=== PATIENT | male | born 1960 | race Caucasian/White ===

== ENCOUNTER → 2017-06-08 | Outpatient (CLI) | payer OTHER ==
[~2017-06-08] MED LIST: AMLO2.5T PO; ASPI81TA28 PO; ATOR-24 PO; CHOL2000 PO; CITA20TA4 PO; METO25TA56 PO; NTRGSL/4 UT; OMEG10007 PO; OXYC1TAB3 PO
[2017-06-08 12:44] LABS: BASO % 0.7 %; BASO ABS # 0.04 K/uL (0-0.2); EOS % 3.1 %; EOS ABS # 0.19 K/uL (0-0.5); HEMATOCRIT 40.8 % (42-52); HEMOGLOBIN 14.5 g/dL (14.0-18.0); IG# 0.02 K/uL (0.00-0.02); LYMPH % 28.2 %; LYMPH ABS # 1.71 K/uL (1.2-3.4); MEAN CELL VOLUME 87.9 fL (80-100); MEAN CORPUSCULAR HEMOGLOBIN 31.3 pg (25-34); MEAN CORPUSCULAR HGB CONC 35.5 g/dl (32-36); MEAN PLATELET VOLUME 10.5 fL (7.4-10.4); MONO % 9.4 %; MONO ABS # 0.57 K/uL (0.11-0.59); NEUT % 58.3 %; NEUT ABS # 3.54 K/uL (1.4-6.5); PLATELET COUNT 178 K/uL (130-400); RED CELL DISTRIBUTION WIDTH CV 13.2 % (11.5-14.5); WHITE BLOOD COUNT 6.07 K/uL (4.8-10.8)
[2017-06-08 12:59] LABS: BLOOD UREA NITROGEN 22 mg/dl (7-18); CALCIUM 9.3 mg/dl (8.5-10.1); CARBON DIOXIDE 27 mmol/L (21-32); CREATININE 1.57 mg/dl (0.60-1.40); GLUCOSE 96 mg/dl (70-99); POTASSIUM 4.9 mmol/L (3.5-5.1); SODIUM 139 mmol/L (136-145)
--- NOTE | 2017-06-08 13:06 | DIAGNOSTIC IMAGING REPORT ---
CHEST 2 VIEWS ROUTINE CLINICAL HISTORY: Preoperative chest COMPARISON STUDY: No previous studies for comparison. FINDINGS: The cardiac and mediastinal contours are normal. There is no evidence of focal pulmonary consolidation. There is no evidence of failure. No pleural effusions are visualized.[ IMPRESSION: No active disease in the chest. Electronically signed by: Julián Ferrell M.D. 06/08/2017 1:04 PM Dictated Date/Time: 06/08/2017 1:04 PM
== END | disposition home or self-care (01) ==
LOC: C.LAB 12:41
PROVIDERS: ATTEND Orthopaedic Surgery Orthopaedic Surgery of the Spine
DX: Z01.811 Encounter for preprocedural respiratory examination (principal); Z01.812 Encounter for preprocedural laboratory examination

== ENCOUNTER 2017-07-20 07:45 | Inpatient (IN) | payer OTHER ==
[2017-06-08 11:29] VITALS: BMI 35.0
--- NOTE | 2017-06-08 12:25 | PAT Medication Instructions ---
Service Date Jun 08, 2017. Current Home Medication List Amlodipine (Norvasc), 2.5 MG PO QPM Aspirin (Aspirin Ec), 81 MG PO QAM Atorvastatin (Lipitor), 40 MG PO QPM Cholecalciferol (Vitamin D3), 2 CAP PO QAM Fish Oil ([place]-3), 1 CAP PO QAM Metoprolol Tartrate (Lopressor) (Lopressor), 25 MG PO BID Nitroglycerin (Nitrostat), 0.4 MG UT PRN Oxycodone Ir (Roxicodone Ir), 1-2 TAB PO UD PRN for Severe Pain Medication Instructions For Your Scheduled Surgery -Continue as directed: Nitroglycerin (Nitrostat), 0.4 MG UT PRN - Hold the following medications 2 weeks prior to surgery: Fish Oil ([place]-3), 1 CAP PO QAM - Hold the following medications the morning of surgery: Cholecalciferol (Vitamin D3), 2 CAP PO QAM - Take the following medications the morning of surgery with a sip of water: Aspirin (Aspirin Ec), 81 MG PO QAM Metoprolol Tartrate (Lopressor) (Lopressor), 25 MG PO BID Oxycodone Ir (Roxicodone Ir), 1-2 TAB PO UD PRN for Severe Pain (if needed, can be taken up to four hours before surgery) - Take the following medications as scheduled the night before surgery: Amlodipine (Norvasc), 2.5 MG PO QPM Atorvastatin (Lipitor), 40 MG PO QPM Metoprolol Tartrate (Lopressor) (Lopressor), 25 MG PO BID Oxycodone Ir (Roxicodone Ir), 1-2 TAB PO UD PRN for Severe Pain (if needed) If you have any questions please call us at [phone] or [phone] or [phone]
[~2017-07-20] VITALS: Ht 180.3 cm; Wt 113.0 kg
[2017-07-20] VITALS (10 sets, daily range): BP systolic 111–161; BP diastolic 65–87; PULSE 47–83; TEMP 36.3–36.8; O2SAT 91–100; Ht 180.3 cm; Wt 113.0 kg
[~2017-07-20 07:45] MED LIST changes: +CEFAZOLIN 2000MG IV PUSH 15 ML IV SCH; -CITA20TA4 PO; +LACTATED RINGER'S 1000ML 1,000 ML IV SCH
[2017-07-20] MEDS ORDERED: FENTANYL CITRATE INJ 50 MCG/1 ML 2 ML VIAL ONE ×4 (09:02→12:05)
[2017-07-20] MEDS ORDERED: MIDAZOLAM HCL 1 MG/ML 2ML VIAL ONE (09:02)
--- NOTE | 2017-07-20 09:10 | History & Physical Bridge Note ---
H&P Re-Evaluation Bridge Note: I have examined the patient, reviewed the History & Physical and in the interval since the performance of the History & Physical I have noted the following changes of clinical significance: No changes noted
--- NOTE | 2017-07-20 09:12 | History and Physical ---
History & Physical Date Jul 20, 2017. Chief Complaint Back and leg pain History of Present Illness The patient is a 56 year old male with complaints of back and leg pain Past Medical/Surgical History Medical Problems: (1) DDD (degenerative disc disease) (2) Seroma, postoperative Additional History Hepatic Disease: No Endocrine Disorder: No Kidney Disease: No Hypertension: No Heart Disease: No Bleeding Tendencies: No Infectious Diseases: No Allergies Coded Allergies: No Known Allergies (Unverified , `, 07/20/17) pt denies any allergies Home Medications Scheduled Amlodipine (Norvasc), 2.5 MG PO QPM Aspirin (Aspirin Ec), 81 MG PO QAM Atorvastatin (Lipitor), 40 MG PO QPM Cholecalciferol (Vitamin D3), 2 CAP PO QAM Fish Oil ([place]-3), 1 CAP PO QAM Metoprolol Tartrate (Lopressor) (Lopressor), 25 MG PO BID Nitroglycerin (Nitrostat), 0.4 MG UT PRN Scheduled PRN Oxycodone Ir (Roxicodone Ir), 1-2 TAB PO UD PRN for Severe Pain Physical Examination Skin: warm/dry, no rash Eyes: normal inspection, EOMI, sclerae normal ENT: normal ENT inspection, pharynx normal Head: normocephalic, atraumatic Neck: supple, no adenopathy, trachea midline Respiratory/Chest: lungs clear, normal breath sounds, no respiratory distress Cardiovascular: regular rate, rhythm, no edema, no murmur Abdomen / GI: normal bowel sounds, non tender Back: normal inspection Extremities: normal inspection, normal range of motion Neurologic/Psych: no motor/sensory deficits, alert, normal reflexes, oriented x 3 Diagnosis Lumbar spinal stenosis Plan of Treatment Hardware removal L4-5 L5-S1 with decompression and fusion L2-3 L3-4 L4-5 L5-S1
[2017-07-20] MEDS ORDERED: BUPIVACAINE/EPINEPHRINE 0.5% MPF 1:200,000 30 ML VIAL ONE (09:25)
[2017-07-20] MEDS ORDERED: BACITRACIN 50000 UNIT VIAL ONE (09:26)
[2017-07-20] MEDS ORDERED: HYDROmorphone INJ 2 MG/ML SYR/VIAL ONE ×2 (10:07→11:28)
[2017-07-20] MEDS ORDERED: PROMETHAZINE HCL INJ 6.25 MG in SODIUM CHLORIDE 0.9% 50ML 50 ML IV PRN (10:15)
[2017-07-20] MEDS ORDERED: EpHEDrine SULFATE INJ 50 MG/ML AMP IV PRN (10:15)
[2017-07-20] MEDS ORDERED: ATROPINE SULFATE 0.1 MG/ML 5ML SYR IV PRN (10:15)
[2017-07-20] MEDS ORDERED: ONDANSETRON INJ 2 MG/ML 2 ML VIAL IV PRN ×2 (10:15→12:00)
[2017-07-20] MEDS ORDERED: HYDROmorphone INJ 1 MG/ML SYR IV PRN (10:15)
[2017-07-20] MEDS ORDERED: ALBUMIN HUMAN 5% 12.5 GM/250 ML VIAL IV ONE (11:08)
[2017-07-20] MEDS ORDERED: FLOSEAL HEMOSTATIC MATRIX 10ML TOP ONE (11:41)
--- NOTE | 2017-07-20 11:46 | [facility] Operative Report ---
Operative Report Operative Date Jul 20, 2017. Pre-Operative Diagnosis Lumbar Spinal Stenosis Post-Operative Diagnosis Same Procedure(s) Performed 1. Removal posterior instrumentation L4-5 L5-S1. #2 expiration fusion L4-5 L5-S1. #3 lumbar decompression medial facetectomies foraminotomies L2-3 L3-4. #4 posterior spinal fusion L2-3 L3-4 L4-5. #5 placement of posterior segmental instrumentation L2-L5. #6 interbody fusion L3-4. #7 placement peek cage 12 x 26 mm at L3-4. #8 placement of locally harvested autograft and in the posterior gutters. #9 placement of infuse collagen sponge, Nast graft in the posterior gutters and ostial amp in the interbody space. Surgeon Dr. Olaf Eubanks Train Brake Operator Surgeon(s) Jayne Chew PA-C Estimated Blood Loss 250 Description of Procedure Patient was met with preoperatively case discussed all questions addressed. After informed consent obtained patient was taken to the operative suite underwent intubation and placed in a prone position on the Nikhil table on top of the Maykel frame. All bony prominences were well-padded eyes inspected to ensure no external pressure placed upon the. This point the lumbar spine was prepped and draped in normal sterile fashion. Sharp dissection with the assistance of Bovie cautery was performed down to and exposing the lamina and transverse process of L2-L3 and the instrumentation L4 L5-S1 levels bilaterally. I then proceeded remove the hardware bilaterally. Explored the fusion mass noting to be intact though there was a paucity bone graft at the 4 5 level. Then performed complete laminectomy of L3 and L2 addressing severe central lateral recess disease. Pedicle screws were then placed in L2 L3-L4-L5 bilaterally with the assistance of fluoroscopy and the appropriately sized radha placed. Through a transforaminal approach on the left complete discectomy of L3 -4 was performed endplates could to subcortical bleeding bone and a 12 x 26 mm peek cage filled with ostium bone graft tapped in position. The rods and locked in final position bilaterally. Transverse processes of L2-L3-L4 and L5 burred to subcortical bleeding bone. Infuse collagen sponge mass graft and locally harvested morselized autograft placed in the posterior gutters. 15 round SHAYNE drain inserted. Incision was closed with 1 Vicryl fascia 2-0 Vicryl subcutaneously 4 Monocryl for fashion closure Steri-Strips sterile dressings placed. Patient weakened the PACU stable condition. Please note Jayne Mcmillan was present throughout the entire procedure involved in patient positioning complex portions of the surgery and final skin closure. I attest to the content of the Intraoperative Record and any orders documented therein. Any exceptions are noted below.
[2017-07-20] MEDS ORDERED: SODIUM CHLORIDE 0.9% 1000ML 1,000 ML IV SCH (11:47)
[2017-07-20] MEDS ORDERED: DEXAMETHASONE SOD INJ 4 MG/ML VIAL ONE (11:49)
[2017-07-20] MEDS ORDERED: ROCURONIUM BROMIDE 10 MG/ML 5 ML VIAL IV ONE (11:49)
[2017-07-20] MEDS ORDERED: ONDANSETRON INJ 2 MG/ML 2 ML VIAL ONE (11:49)
[2017-07-20] MEDS ORDERED: PROPOFOL IV EMULSION 10 MG/ML 20 ML VIAL IV ONE (11:49)
[2017-07-20] MEDS ORDERED: EpHEDrine SULFATE 50MG/5ML SYR ONE (11:49)
[2017-07-20] MEDS ORDERED: LIDOCAINE HCL 2% 2 ML VIAL (20MG/ML) ONE (11:49)
[2017-07-20] MEDS ORDERED: ACETAMINOPHEN IV 100 ML IV PRN (12:00)
[2017-07-20] MEDS ORDERED: ACETAMINOPHEN 500 MG TAB PO PRN (12:00)
[2017-07-20] MEDS ORDERED: METOCLOPRAMIDE HCL INJ 5 MG/ML 2 ML VIAL IV PRN (12:00)
[2017-07-20] MEDS ORDERED: ALUMINUM/MAGNESIUM SUSP 30 ML UDC PO PRN (12:00)
[2017-07-20] MEDS ORDERED: hydrOXYzine HCL 25 MG TAB PO PRN (12:00)
[2017-07-20] MEDS ORDERED: NALOXONE HCL 0.4 MG/1 ML VIAL/CARP IV PRN (12:00)
[2017-07-20] MEDS ORDERED: BISACODYL 10 MG SUPP PR PRN (12:00)
[2017-07-20] MEDS ORDERED: MAGNESIUM HYDROXIDE SUSP 30 ML UDC PO PRN (12:00)
[2017-07-20] MEDS ORDERED: NITROGLYCERIN 0.4 MG SL PER TAB CHARGE UT PRN (12:00)
[2017-07-20] MEDS ORDERED: DO NOT ADMINISTER PNEUMOCOCCAL VACCINE PRN (12:00)
[2017-07-20] MEDS ORDERED: SOD PHOSPHATE/SOD BIPHOSPHATE ENEMA 132 ML BTL PR PRN (12:00)
[2017-07-20] MEDS ORDERED: PROMETHAZINE HCL INJ 12.5 MG in SODIUM CHLORIDE 0.9% 50ML 50 ML IV PRN (12:00)
[2017-07-20] MEDS ORDERED: FAMOTIDINE 20 MG TAB PO PRN (12:00)
[2017-07-20] MEDS ORDERED: DO NOT ADMINISTER FLU VACCINE PRN (12:00)
[2017-07-20] MEDS ORDERED: LORAZEPAM 0.5 MG TAB PO PRN (12:00)
[2017-07-20] MEDS ORDERED: LORAZEPAM INJ 0.5 MG in SYRINGE 0.75 ML IV PRN (12:00)
[2017-07-20] MEDS ORDERED: HYDROmorphone INJ 0.5 MG/0.5 ML SYR ONE (12:10)
--- NOTE | 2017-07-20 12:10 | DIAGNOSTIC IMAGING REPORT ---
LUMBAR SPINE, INTRAOPERATIVE FLUOROSCOPY HISTORY: L4 S1 hardware removal. L2-L5 decompression and fusion. FLUOROSCOPY TIME: 11 seconds. FINDINGS: Intraoperative fluoroscopy was provided for the lumbar spine. 3 fluoroscopic spot images were obtained. Posterior decompression fusion from L2 through L5 with pedicle screws and rods. The hardware appears intact. IMPRESSION: Fluoroscopy provided for a L2-L5 posterior decompression and fusion. Electronically signed by: Lencho Montoya M.D. 07/20/2017 12:08 PM Dictated Date/Time: 07/20/2017 12:07 PM
[2017-07-20] MEDS: HYDROmorphone HCL 0.5MG/ML 50 ML CASSETTE IV PRN ×4 (12:27→23:04)
[2017-07-20] MEDS: FENTANYL CITRATE INJ 50 MCG/1 ML 2 ML VIAL IV PRN ×4 (12:29→12:50)
--- NOTE | 2017-07-20 13:12 | Anesthesiology Progress Note ---
Anesthesia Post Op Note Date & Time Jul 20, 2017 at 13:12 Vital Signs Pain Intensity: 7 Vital Signs Past 12 Hours Date Time Temp Pulse Resp B/P (MAP) Pulse Ox O2 Delivery O2 Flow Rate FiO2 07/20/17 13:00 70 22 146/83 100 Nasal Cannula 4 07/20/17 12:50 73 12 144/83 99 Nasal Cannula 4 07/20/17 12:40 57 20 140/83 94 Nasal Cannula 4 07/20/17 12:30 72 15 141/81 100 Oxymask 10 07/20/17 12:20 74 13 139/77 100 Oxymask 10 07/20/17 12:10 36.2 81 19 149/83 99 Oxymask 10 07/20/17 08:33 36.7 47 20 132/78 97 Room Air Notes Mental Status: alert / awake / arousable, participated in evaluation Pt Amnestic to Procedure: Yes Nausea / Vomiting: adequately controlled Pain: adequately controlled Airway Patency, RR, SpO2: stable & adequate BP & HR: stable & adequate Hydration State: stable & adequate Anesthetic Complications: no major complications apparent
[2017-07-20] MEDS: SODIUM CHLORIDE 0.9% 1000ML 1,000 ML IV SCH ×2 (13:53→20:27)
[2017-07-20] MEDS ORDERED: RXC5 PO (14:37)
--- NOTE | 2017-07-20 14:38 | Discharge Instructions ---
Discharge Instructions Date of Service Jul 20, 2017. Admission Reason for Admission: Lumbar Spinal Stenosis Discharge Discharge Diagnosis / Problem: lumbar stenosis Discharge Goals Goal(s): Improve function Activity Recommendations Activity Limitations: per Instructions/Follow-up section . Instructions / Follow-Up Instructions / Follow-Up ACTIVITY RECOMMENDATIONS: SELF CARE INSTRUCTIONS AFTER THORACIC/LUMBAR FUSIONS 1. You may walk to your tolerance. It is good exercise for your legs and back. Expect some back and intermittent leg aches and pains. 2. You may perform "counter-top" level activities (make a sandwich, lion with a project, etc.). 3. No bending or lifting of more than 10 pounds or back twisting of any nature (roll like a log when turning in bed). 4. You may ride in a car for 20-30 minutes at a time. No driving until after your first visit with your doctor. 5. Frequent changes of position and restricting sitting to 30 minutes at a time will help limit the amount of back spasms and stiffness you may experience. 6. You may discontinue the use of ambulatory aids (cane, crutches, etc.) once your strength and confidence allow. 7. You may risk and insurance manager the shower and let water strike your incision when you arrive home at least once daily. Do not take a tub bath, sit in a hot tub or go into a swimming pool until after your first recheck in the office. SPECIAL CARE INSTRUCTIONS: VERY IMPORTANT TO READ AND REVIEW A. Your surgical incision has been closed with a cosmetic suture under the skin that will dissolve in about 6 weeks. In 14 days, you can use a pair of clean scissors and cut the suture that is left outside of the skin at the ends of your incision. 1. The small skin tapes can be removed 7 days after surgery if they have not fallen off by that point. 2. You may keep the wound open to air as much as possible to promote healing after post-op day number 5 unless told otherwise by your doctor. 3. If you think the wound looks like it is becoming infected (redness or worsening drainage) and/or you are experiencing fever, chill or worsening back pain and muscle spasms, contact the office so that we may evaluate you as soon as possible. B. Complications are uncommon, but please contact us if you have any signs or symptoms of: 1. wound infection (fever higher than 102.5 degrees F, redness, separation of wound, drainage, or increasing pain from the incision) 2. blood clots in legs (pain, swelling, redness and warmth in legs) 3. urinary tract infection (fever higher than 102.5 degrees F, burning upon urination or increased frequency of urination) 4. nerve problems (inability to walk on your toes or heels, numbness, loss of bowel or bladder control) 5. any other symptoms that concern you C. Please call the office at if you have any concerns or questions about your operation or recovery. D. No smoking! Smoking drastically decreases the chance of a solid fusion. E. Do not take any anti-inflammatory medications (Indocin, Advil, Motrin, Aspirin, Naprosyn, etc.) as these may inhibit the chance of a solid fusion. Tylenol is okay to take for pain. MANAGING PAIN AFTER SPINAL SURGERY 1. Narcotic medication is intended for short-term use and will be provided for surgical pain. Surgical pain usually lasts for a period of 4-6 weeks. Narcotic medication includes Percocet, Vicodin, Darvocet, Tylenol #3 or Lortab. 2. Longer-term pain is more appropriately treated with non-narcotic medication such as Tylenol ES. 3. Muscle spasm is not appropriately treated with narcotics. Muscle relaxers such as Soma, Flexeril or Skelaxin can be used along with Tylenol ES. 4. Remember that we all live with some "aches and pains". This is not unusual or uncommon after an injury or as we get older. a. Back pain is expected and may include muscle spasms for 4 to 6 weeks after surgery. The pain should gradually improve. If the pain worsens for no apparent reason, please contact the office. b. Intermittent leg pain may also be experienced and should not be concerned about unless it worsens for no apparent reason. If so, please contact the office. 5. We will provide appropriate medication within the normal guidelines of their prescribed use. We will also be very cautious and aware of potential abuse and extended duration of patients' medication needs. a. Pain medications are for your comfort and to assist with sleep and rest so that the tissue can heal. They are not provided in order to return to normal activity and should not be used through the day. To do so or worsening pain at night can result from ongoing tissue damage and development of tolerance to the prescribed medicine. 6. Please allow 2-3 days to process refills. Prescriptions will not be mailed but must be picked up at the office. FOLLOW UP VISIT: Keep your scheduled follow-up appointment. Any questions, please call the office at . Current Hospital Diet Patient's current hospital diet: Regular Diet Discharge Diet Recommended Diet: Regular Diet Procedures Procedures Performed: 1. Removal posterior instrumentation L4-5 L5-S1. #2 expiration fusion L4-5 L5-S1. #3 lumbar decompression medial facetectomies foraminotomies L2-3 L3-4. #4 posterior spinal fusion L2-3 L3-4 L4-5. #5 placement of posterior segmental instrumentation L2-L5. #6 interbody fusion L3-4. #7 placement peek cage 12 x 26 mm at L3-4. #8 placement of locally harvested autograft and in the posterior gutters. #9 placement of infuse collagen sponge, Nast graft in the posterior gutters and ostial amp in the interbody space. Pending Studies Studies pending at discharge: no Medical Emergencies . Who to Call and When: Medical Emergencies: If at any time you feel your situation is an emergency, please call 911 immediately. . Non-Emergent Contact Non-Emergency issues call your: Primary Care Provider . "Provider Documentation" section prepared by Olaf Eubanks. .
[2017-07-20] MEDS: CEFAZOLIN IV 2,000 MG in SYRINGE 0 ML IV SCH (18:01)
[2017-07-20] MEDS: ATORVASTATIN 40 MG TAB PO SCH (20:30)
[2017-07-20] MEDS: METOPROLOL TARTRATE 25 MG TAB PO SCH (20:30)
[2017-07-20] MEDS: AMLODIPINE BESYLATE 5 MG TAB PO SCH (20:31)
[2017-07-20] MEDS: DOCUSATE SODIUM/SENNA 50/8.6MG TAB PO SCH (20:32)
[2017-07-21] MEDS: SODIUM CHLORIDE 0.9% 1000ML 1,000 ML IV SCH (02:35)
[2017-07-21] MEDS: CEFAZOLIN IV 2,000 MG in SYRINGE 0 ML IV SCH (02:35)
[2017-07-21 03:05] VITALS: BP 117/69; PULSE 78; TEMP 36.5; O2SAT 93
[2017-07-21] MEDS ORDERED: NALOXONE HCL 0.4 MG/1 ML VIAL/CARP IV PRN (06:00)
[2017-07-21] MEDS ORDERED: DC PCA ONE (06:00)
[2017-07-21] MEDS ORDERED: HYDROmorphone INJ 0.5 MG/0.5 ML SYR IV PRN (06:00)
[2017-07-21 06:30] LABS: BASO % 0.1 %; BASO ABS # 0.01 K/uL (0-0.2); EOS % 0.1 %; EOS ABS # 0.01 K/uL (0-0.5); HEMATOCRIT 31.8 % (42-52); IG# 0.03 K/uL (0.00-0.02); LYMPH % 6.4 %; MEAN CELL VOLUME 89.3 fL (80-100); MEAN CORPUSCULAR HEMOGLOBIN 30.9 pg (25-34); MEAN CORPUSCULAR HGB CONC 34.6 g/dl (32-36); MEAN PLATELET VOLUME 10.7 fL (7.4-10.4); MONO % 8.3 %; NEUT % 84.8 %; NEUT ABS # 9.23 K/uL (1.4-6.5); PLATELET COUNT 137 K/uL (130-400); RED CELL DISTRIBUTION WIDTH CV 13.1 % (11.5-14.5); RED CELL DISTRIBUTION WIDTH SD 42.7 fL (36.4-46.3); WHITE BLOOD COUNT 10.88 K/uL (4.8-10.8)
[2017-07-21 06:57] VITALS: BP 121/69; PULSE 68; TEMP 36.9; O2SAT 96
[2017-07-21 07:21] LABS: CALCIUM 7.8 mg/dl (8.5-10.1); CREATININE 1.39 mg/dl (0.60-1.40); POTASSIUM 4.2 mmol/L (3.5-5.1)
--- NOTE | 2017-07-21 07:44 | Anesthesiology Progress Note ---
Anesthesia Post Op Note Date & Time Jul 21, 2017 at 07:44 Vital Signs Vital Signs Past 12 Hours Date Time Temp Pulse Resp B/P (MAP) Pulse Ox O2 Delivery O2 Flow Rate FiO2 07/21/17 06:57 36.9 68 18 121/69 (86) 96 Room Air 07/21/17 03:05 36.5 78 17 117/69 (85) 93 Room Air 07/20/17 23:55 Room Air 07/20/17 23:11 36.8 81 17 111/65 (80) 91 Room Air Notes Mental Status: alert / awake / arousable, participated in evaluation Pt Amnestic to Procedure: Yes Nausea / Vomiting: adequately controlled Pain: adequately controlled Airway Patency, RR, SpO2: stable & adequate BP & HR: stable & adequate Hydration State: stable & adequate Anesthetic Complications: no major complications apparent
[2017-07-21] MEDS: ASPIRIN 81 MG ECTAB PO SCH (08:49)
[2017-07-21] MEDS: METOPROLOL TARTRATE 25 MG TAB PO SCH ×2 (08:49→21:05)
[2017-07-21] MEDS: OXYCODONE HCL IR 5 MG TAB (IMMEDIATE RELEASE) PO PRN ×3 (08:49→16:53)
[2017-07-21 12:42] VITALS: BP 134/76; PULSE 60; TEMP 36.7; O2SAT 94
--- NOTE | 2017-07-21 13:40 | Progress Note ---
Progress Note Date of Service Jul 21, 2017. Progress Note Patient's back pain is controlled leg symptoms are improved. Vital signs are stable. On exam his good strength testing appears comfortable. Assessment status post lumbar decompression fusion. Plan at this time we will continue with physical therapy advance his bowel regiment anticipate possible discharge .
[2017-07-21 15:54] VITALS: BP 117/76; PULSE 91; TEMP 36.8; O2SAT 94
[2017-07-21] MEDS: ATORVASTATIN 40 MG TAB PO SCH (21:03)
[2017-07-21] MEDS: AMLODIPINE BESYLATE 5 MG TAB PO SCH (21:06)
[2017-07-21] MEDS: DOCUSATE SODIUM/SENNA 50/8.6MG TAB PO SCH (21:06)
[2017-07-21 23:11] VITALS: BP 138/80; PULSE 65; TEMP 36.8; O2SAT 96
[2017-07-22] MEDS: KETOROLAC TROMETHAMINE 30 MG/ML VIAL IV PRN ×3 (00:11→18:19)
[2017-07-22] MEDS: OXYCODONE HCL IR 5 MG TAB (IMMEDIATE RELEASE) PO PRN ×4 (02:22→21:41)
[2017-07-22] MEDS: POLYETHYLENE (MIRALAX) 17 GM PACK PO SCH ×4 (05:40→23:52)
[2017-07-22 06:01] VITALS: BP 148/88; PULSE 59; TEMP 36.6; O2SAT 95
[2017-07-22 07:15] VITALS: BP 142/74; PULSE 64
[2017-07-22] MEDS: ASPIRIN 81 MG ECTAB PO SCH (07:23)
[2017-07-22] MEDS: METOPROLOL TARTRATE 25 MG TAB PO SCH ×2 (07:23→21:01)
--- NOTE | 2017-07-22 11:13 | Progress Note ---
Progress Note Date of Service Jul 22, 2017. Progress Note Back pain is controlled leg symptoms are improved. On exam is good strength testing appears comfortable. Assessment status post lumbar decompression fusion per plan at this time we anticipate continued progression today and discharge home tomorrow.
[2017-07-22 15:16] VITALS: BP 121/67; PULSE 56; TEMP 36.7; O2SAT 96
[2017-07-22] MEDS: DOCUSATE SODIUM/SENNA 50/8.6MG TAB PO SCH (21:00)
[2017-07-22] MEDS: ATORVASTATIN 40 MG TAB PO SCH (21:01)
[2017-07-22] MEDS: AMLODIPINE BESYLATE 5 MG TAB PO SCH (21:38)
[2017-07-22 23:19] VITALS: BP 147/81; PULSE 62; TEMP 37.1; O2SAT 96
[2017-07-23] MEDS: KETOROLAC TROMETHAMINE 30 MG/ML VIAL IV PRN (00:21)
[2017-07-23] MEDS: POLYETHYLENE (MIRALAX) 17 GM PACK PO SCH (06:00)
[2017-07-23 06:17] VITALS: BP 134/83; PULSE 61; TEMP 36.6; O2SAT 95
[2017-07-23] MEDS: OXYCODONE HCL IR 5 MG TAB (IMMEDIATE RELEASE) PO PRN ×2 (06:18→10:10)
[2017-07-23] MEDS: ASPIRIN 81 MG ECTAB PO SCH (07:26)
[2017-07-23] MEDS: METOPROLOL TARTRATE 25 MG TAB PO SCH (07:27)
[2017-07-23 07:31] VITALS: BP 126/70; PULSE 80
[2017-07-23] MEDS ORDERED: ATV5 PO (08:06)
--- NOTE | 2017-07-23 08:19 | Discharge Summary ---
Orthopedic Discharge Summary Admission Date/Reason Jul 20, 2017 at 13:35 Lumbar Spinal Stenosis. Discharge Date/Disposition Jul 23, 2017 Home Diagnosis Principal Diagnosis: Lumbar spinal stenosis with neurogenic claudication Admission Physical Exam As per Admitting History & Physical. Hospital Course Patient underwent lumbar decompression fusion tolerated this well was taken to the orthopedic floor postoperatively. Postop day #1 he was up and ambulatory progress through postop day #2. SHAYNE drain decreased appropriately. Bowels working well. Subsequently discharged home on postop day #3. Discharge orders instructions can be found on the chart for further review. Discharge Instructions Please refer to the electronic Patient Visit Report (Discharge Instructions) for additional information.
[2017-07-23 10:12] VITALS: BP 126/70; PULSE 80; TEMP 36.6; O2SAT 95
== END 2017-07-23 10:44 | disposition home or self-care (01) | DRG 455 ==
LOC: C.ACU 07:45 → ENRESERV 12:42 → C.3E 13:35
PROVIDERS: ADMIT Orthopaedic Surgery Orthopaedic Surgery of the Spine; ATTEND Orthopaedic Surgery Orthopaedic Surgery of the Spine
PROC: 0SG1071 Fusion of 2 or more Lumbar Vertebral Joints with Autologous Tissue Substitute, Posterior Approach, Posterior Column, Open Approach (ICD-10-PCS; principal; 2017-07-20 09:45)
PROC: 0SW Lower Joints, Revision (ICD-10-PCS; principal; 2017-07-20 09:45)
PROC: 0SG00AJ Fusion of Lumbar Vertebral Joint with Interbody Fusion Device, Posterior Approach, Anterior Column, Open Approach (ICD-10-PCS; principal; 2017-07-20 09:45)
PROC: 0ST20ZZ Resection of Lumbar Vertebral Disc, Open Approach (ICD-10-PCS; principal; 2017-07-20 09:45)
PROC: 0SP004Z Removal of Internal Fixation Device from Lumbar Vertebral Joint, Open Approach (ICD-10-PCS; principal; 2017-07-20 09:45)
PROC: 0SP304Z Removal of Internal Fixation Device from Lumbosacral Joint, Open Approach (ICD-10-PCS; principal; 2017-07-20 09:45)
DX: M48.062 Spinal stenosis, lumbar region with neurogenic claudication (principal); Z79.899 Other long term (current) drug therapy; Z79.82 Long term (current) use of aspirin; Z98.1 Arthrodesis status